=== PATIENT | male | born 1950 | race Caucasian/White ===

== ENCOUNTER 2024-04-07 14:34 | Outpatient (CLI) | payer MEDICARE, OTHER ==
[~2024-04-07 14:34] MED LIST: Magnevist 469MG/ML 20 ML VIAL ONE
== END 2024-04-07 14:35 | disposition home or self-care (01) ==
LOC: PET 14:34
PROVIDERS: ATTEND Internal Medicine Hematology & Oncology
DX: C61 Malignant neoplasm of prostate (principal); C79.51 Secondary malignant neoplasm of bone; M54.50 Low back pain, unspecified; S32.039A Unspecified fracture of third lumbar vertebra, initial encounter for closed fracture; M47.816 Spondylosis without myelopathy or radiculopathy, lumbar region
CPT/HCPCS: 72158; 78815; A9552; A9595

== ENCOUNTER → 2024-04-27 | Day surgery (SDC) | payer MEDICARE, OTHER ==
[~2024-04-27] MED LIST changes: +Lidocaine 1% w/Epinephrine 1:100K 20 ML VIAL ONE; -Magnevist 469MG/ML 20 ML VIAL ONE; +Midazolam HCl 2 mg/2 ml Vial ONE; +Sodium Bicarbonate 2.5 MEQ/5 ML SDV ONE; +fentaNYL 50 mcg/mL 1 mL Vial ONE
[2024-04-27 10:03] LABS: #Basophils 0.08 10x3/uL (0.0-0.2); %Eosinophils 4.3 % (0.0-10.0); %Lymphocytes 16.2 % (21.0-51.0); %Monocytes 9.3 % (0.0-10.0); %Neutrophils 68.6 % (42.0-75.0); Hematocrit 40.6 % (42.0-52.0); Hemoglobin 13.2 g/dL (14.0-18.0); Mean Corpuscular HGB CONC 32.5 g/dL (32.0-36.0); Mean Corpuscular Volume 89.2 fL (78.0-98.0); Platelet Count 226 10x3/uL (130-400); RBC Distribution Width 15.9 % (11.5-14.5); Red Blood Cell (RBC) Count 4.55 mill/uL (4.70-6.10)
[2024-04-27 10:26] LABS: Prothrombin Time 13.4 sec (12.0-14.7)
[2024-04-27 10:27] LABS: PTT 30.1 sec (22.9-36.1)
== END ==
LOC: CT 09:30
PROVIDERS: ATTEND Internal Medicine Hematology & Oncology
PROC: 0QB63ZX Excision of Right Upper Femur, Percutaneous Approach, Diagnostic (ICD-10-PCS; principal; 2024-04-27)
DX: M89.8X8 Other specified disorders of bone, other site (principal); C61 Malignant neoplasm of prostate; E07.9 Disorder of thyroid, unspecified; Z87.891 Personal history of nicotine dependence; Z79.899 Other long term (current) drug therapy
CPT/HCPCS: 20225; 36415; 77012; 80053; 80061; 82248; 83615; 84100; 84153; 84443; 84550; 85025; 85610; 85730; 88307; 88333; 88334; 88341; 88342; J2250; J3010